=== PATIENT | male | born 1965 | race American Indian/Alaskan Native ===

== ENCOUNTER 2017-01-26 04:48 | Emergency (ER) | payer MEDICARE ==
[2017-01-26 05:29] LABS: Basophils % (Auto) 0.9 % (0.0-1.8); Eosinophils % (Auto) 3.2 % (0.0-4.3); Hematocrit 34.3 % (35.5-45.6); Mean Corpuscular HGB Conc 32 % (32-34); Mean Corpuscular Hemoglobin 28 pg (28-32); Mean Corpuscular Volume 88 fl (84-94); Platelet Count 263 K/mm3 (140-440); Red Cell Distribution Width 18.8 % (13.2-15.2); White Blood Count 7.1 K/mm3 (4.5-11.0)
[2017-01-26 05:42] LABS: BUN/Creatinine Ratio 3.06; Calcium 9.9 mg/dL (8.4-10.2); Chloride 90.6 mmol/L (98-107); Potassium 5.2 mmol/L (3.6-5.0)
[2017-01-26] MEDS ORDERED: ZOFRAN ODT PO ONE (06:28)
--- NOTE | 2017-01-26 06:33 | Emergency Department Report ---
HPI - General Chief Complaint: Nausea/Vomiting/Diarrhea Time Seen by Provider: 01/26/17 06:20 - HPI HPI: Room 23 The patient is a 51-year-old male presenting with a chief complaint nausea vomiting and diarrhea. Patient states for the past 2 days he's had episodes of nausea vomiting and diarrhea. Patient states when he awakened today he had diffuse body aches in addition to frontal headache. Patient denies any history of sick contacts, fever or cough. Patient denies any other complaints. Patient last received dialysis yesterday Location: [see above] Duration: 2 days, see above Quality: Aches Severity: Moderate Modifying factors: [see above] Context: [see above] Mode of transportation: The patient drove himself to the emergency department and there are no visitors present ED Past Medical Hx - Past Medical History Previous Medical History?: Yes Hx Hypertension: Yes (10yrs) Hx Renal Disease: Yes (Mon, Wed, and Fri dailysis) - Surgical History Past Surgical History?: Yes Hx Cholecystectomy: Yes Additional Surgical History: av graft to left arm and right arm. - Family History Family history: no significant - Social History Smoking Status: Never Smoker Substance Use Type: None (denies illicit drug use) - Medications Home Medications: Home Medications Medication Instructions Recorded Confirmed Last Taken Type Cinacalcet HCl [Sensipar] 90 mg PO QDAY 09/06/13 01/26/17 09/06/13 08:00 History Sevelamer Carbonate [Renvela] 800 mg PO TID 09/06/13 01/26/17 09/06/13 13:10 History cloNIDine [Catapres] 0.2 mg PO Q12HR #60 tablet 09/09/13 01/26/17 Unknown Rx hydrALAZINE [Apresoline TAB] 25 mg PO Q8HR #90 tablet 09/09/13 01/26/17 Unknown Rx HYDROcodone/APAP 5-325 [[place] 1 - 2 each PO Q6HR PRN #14 tablet 01/26/17 Unknown Rx 5/325] Promethazine [Phenergan TAB] 25 mg PO Q6HR PRN #20 tab 01/26/17 Unknown Rx Promethazine [Phenergan] 25 mg [place] Q6HR PRN #5 supp.rect 01/26/17 Unknown Rx ED Review of Systems ROS: Stated complaint: EMESIS/DIARRHEA Other details as noted in HPI Comment: All other systems reviewed and negative Constitutional: denies: chills, fever Eyes: denies: eye pain, eye discharge, vision change ENT: denies: ear pain, throat pain Respiratory: denies: cough, shortness of breath, wheezing Cardiovascular: denies: chest pain, palpitations Endocrine: no symptoms reported Gastrointestinal: abdominal pain, nausea, vomiting, diarrhea Genitourinary: denies: urgency, dysuria Musculoskeletal: denies: back pain, joint swelling, arthralgia Skin: denies: rash, lesions Neurological: denies: headache, weakness, paresthesias Psychiatric: denies: anxiety, depression Hematological/Lymphatic: denies: easy bleeding, easy bruising Physical Exam - Physical Exam Vital Signs: Vital Signs 01/26/17 01/26/17 01/26/17 04:54 05:11 05:21 Temperature 98.2 F Pulse Rate 110 H 86 79 Respiratory 18 13 15 Rate Blood Pressure 219/124 161/74 O2 Sat by Pulse 100 99 97 Oximetry 01/26/17 05:34 Temperature Pulse Rate Respiratory 16 Rate Blood Pressure O2 Sat by Pulse 97 Oximetry Physical Exam: GENERAL: The patient is well-developed well-nourished male lying on stretcher sleeping not appearing to be in acute distress. [] HEENT: Normocephalic. Atraumatic. Extraocular motions are intact. Patient has moist mucous membranes. NECK: Supple. No meningitic signs are noted. Trachea midline CHEST/LUNGS: Clear to auscultation. There is no respiratory distress noted. HEART/CARDIOVASCULAR: Regular. There is no tachycardia. There is no gallop rub or murmur. ABDOMEN: Abdomen is soft, nontender. Patient has normal bowel sounds. There is no abdominal distention. SKIN: There is no rash. There is no edema. There is no diaphoresis. NEURO: The patient is awake, alert, and oriented. The patient is cooperative. The patient has no focal neurologic deficits. The patient has normal speech. Cranial nerves II through XII grossly intact, no drift MUSCULOSKELETAL: There is no evidence of acute injury. ED Course Vital Signs 01/26/17 01/26/17 01/26/17 04:54 05:11 05:21 Temperature 98.2 F Pulse Rate 110 H 86 79 Respiratory 18 13 15 Rate Blood Pressure 219/124 161/74 O2 Sat by Pulse 100 99 97 Oximetry 01/26/17 05:34 Temperature Pulse Rate Respiratory 16 Rate Blood Pressure O2 Sat by Pulse 97 Oximetry ED Medical Decision Making - Lab Data Result diagrams: 01/26/17 05:05 01/26/17 05:05 Laboratory Tests 01/26/17 01/26/17 05:05 05:05 WBC 7.1 RBC 3.90 Hgb 11.0 L Hct 34.3 L MCV 88 MCH 28 MCHC 32 RDW 18.8 H Plt Count 263 Lymph % (Auto) 30.7 [place] % (Auto) 7.8 H Eos % (Auto) 3.2 Baso % (Auto) 0.9 Lymph # 2.2 [place] # 0.6 Eos # 0.2 Baso # 0.1 Seg Neutrophils % 57.4 Seg Neutrophils # 4.1 Sodium 138 Potassium 5.2 H Chloride 90.6 L Carbon Dioxide 27 Anion Gap 26 BUN 30 H Creatinine 9.8 H Estimated GFR 7 BUN/Creatinine Ratio 3.06 Glucose 99 Calcium 9.9 Laboratory Tests 01/26/17 01/26/17 01/26/17 05:05 05:05 05:05 WBC 7.1 RBC 3.90 Hgb 11.0 L Hct 34.3 L MCV 88 MCH 28 MCHC 32 RDW 18.8 H Plt Count 263 Lymph % (Auto) 30.7 [place] % (Auto) 7.8 H Eos % (Auto) 3.2 Baso % (Auto) 0.9 Lymph # 2.2 [place] # 0.6 Eos # 0.2 Baso # 0.1 Seg Neutrophils % 57.4 Seg Neutrophils # 4.1 Sodium 138 Potassium 5.2 H Chloride 90.6 L Carbon Dioxide 27 Anion Gap 26 BUN 30 H Creatinine 9.8 H Estimated GFR 7 BUN/Creatinine Ratio 3.06 Glucose 99 Calcium 9.9 Total Bilirubin 0.30 Direct Bilirubin < 0.2 Indirect Bilirubin 0.1 AST 23 ALT 6 L Alkaline Phosphatase 162 H Total Protein 7.9 Albumin 4.1 Albumin/Globulin Ratio 1.1 Lipase 119 H - Radiology Data Radiology results: report reviewed (CT head, CT abdomen and pelvis), image reviewed (CT head, CT abdomen and pelvis) CT head (read by radiologist)-there is no acute intracranial abnormality. There is no evidence of hemorrhage CT abdomen and pelvis (read by radiologist)-no acute inflammatory processes appreciated. Cholelithiasis. Renal atrophy and renal osteodystrophy changes. Advanced degenerative disc disease at L5-S1. The liver, pancreas, spleen and adrenal glands are unremarkable. - Differential Diagnosis gastroenteritis, pancreatitis, hepatitis, ICH, headache, hypertension Critical care attestation.: If time is entered above; I have spent that time in minutes in the direct care of this critically ill patient, excluding procedure time. ED Disposition Clinical Impression: Nausea vomiting and diarrhea, ESRD on hemodialysis, Hypertension, Headache Disposition: TO HOME OR SELFCARE Is pt being admited?: No Does the pt Need Aspirin: No Condition: Stable Instructions: Hypertension (ED), Acute Nausea and Vomiting (ED) Additional Instructions: Return to the emergency department immediately should you develop worsening symptoms, fever, inability to tolerate food or liquid or any other concerns. Prescriptions: HYDROcodone/APAP 5-325 [[place] 5/325] 1 - 2 each PO Q6HR PRN #14 tablet PRN Reason: Pain Promethazine [Phenergan TAB] 25 mg PO Q6HR PRN #20 tab PRN Reason: Nausea Promethazine [Phenergan] 25 mg [place] Q6HR PRN #5 supp.rect PRN Reason: Vomiting Referrals: RADHA IVY MD [Staff Physician] - 3-5 Days (Dr. Ivy is a primary physician. Please follow up with him for further evaluation) Time of Disposition: 09:08
[2017-01-26 06:51] LABS: Alanine Aminotransferase 6 units/L (7-56); Albumin 4.1 g/dL (3.9-5); Albumin/Globulin Ratio 1.1 %; Alkaline Phosphatase 162 units/L (35-129); Lipase 119 units/L (13-60); Total Protein 7.9 g/dL (6.3-8.2)
[2017-01-26 06:52] LABS: Bilirubin,Direct < 0.2 mg/dL (0-0.2); Bilirubin,Indirect 0.1 mg/dL
--- NOTE | 2017-01-26 07:29 | Cat Scan Report ---
FINAL REPORT PROCEDURE: CT HEAD/BRAIN WO CON TECHNIQUE: Computerized tomography of the head was performed without contrast material. HISTORY: headache with hypertension COMPARISON: No prior studies are available for comparison. FINDINGS: Skull and scalp: Normal. Paranasal sinuses: Normal. Ventricles and subarachnoid spaces: There is no hydrocephalus or ventricular asymmetry.. Cerebrum: No evidence of hemorrhage, acute infarction or mass . Cerebellum and brainstem: No evidence of hemorrhage, acute infarction or mass. Vasculature: Normal. Comments: None. IMPRESSION: There is no acute intracranial abnormality. There is no evidence of hemorrhage.
--- NOTE | 2017-01-26 08:23 | Cat Scan Report ---
CT OF THE ABDOMEN AND PELVIS WITHOUT CONTRAST HISTORY: Vomiting, diarrhea, elevated lipase. TECHNIQUE: Helical CT without contrast. Sagittal and coronal reformatted images. FINDINGS: There is linear scarring in the left lower lobe, otherwise, the visualized lung bases are clear. Normal heart size. The liver, pancreas, spleen and adrenal glands are unremarkable. A few small calcified gallstones measure up to 5 mm. No biliary dilatation or inflammation is appreciated. There is marked bilateral renal atrophy. The bowel loops are within normal limits given no oral contrast was administered. The appendix is not confidently identified, correlate with surgical history. The bladder is empty. No pelvic mass, fluid collection or adenopathy. The bony structures are sclerotic consistent with renal osteodystrophy changes. There is moderate to severe endplate irregularity at L5-S1 level which is probably degenerative or chronic. An infectious process could be considered but is thought less likely. Please correlate with the patient. IMPRESSION: No acute inflammatory process is appreciated. Cholelithiasis. Renal atrophy and renal osteodystrophy changes. Advanced degenerative disc disease at L5-S1.
[2017-01-26] MEDS ORDERED: PROVENTIL IH ONE (09:02)
[2017-01-26 09:38] VITALS: BP 158/73
== END 2017-01-26 09:42 | disposition home or self-care (01) ==
LOC: ED 04:48
DX: R11.2 Nausea with vomiting, unspecified (principal); R19.7 Diarrhea, unspecified; I12.0 Hypertensive chronic kidney disease with stage 5 chronic kidney disease or end stage renal disease; N18.6 End stage renal disease; Z99.2 Dependence on renal dialysis; R51 Headache; Z90.49 Acquired absence of other specified parts of digestive tract
CPT/HCPCS: 36415; 70450; 74176; 80048; 80074; 83690; 85025; 94640; Q0162

== ENCOUNTER 2017-03-22 16:25 | Emergency (ER) | payer MEDICARE ==
--- NOTE | 2017-03-22 17:01 | Emergency Department Report ---
Stated Complaint: BECKETT Time Seen by Provider: 03/22/17 16:59 - HPI History of Present Illness: PT states he was at HD and he was told his K+ level was high and he had high blood pressure - ROS Review of Systems: pt states he feels "swimmy headed" - Exam Vital Signs: Vital Signs 03/22/17 16:54 Temperature 98.6 F Pulse Rate 78 Respiratory 16 Rate Blood Pressure 154/94 O2 Sat by Pulse 99 Oximetry Physical Exam: PT is alert and appropriate, no acute resp distress noted steady gait gcs 15 MSE screening note: Focused history and physical exam performed. Due to findings the following was ordered: ekg, labs ED Disposition for MSE Condition: Stable
[2017-03-22 17:45] LABS: Basophils % (Auto) 0.8 % (0.0-1.8); Hemoglobin 11.2 gm/dl (11.8-15.2); Mean Corpuscular HGB Conc 33 % (32-34); Mean Corpuscular Hemoglobin 28 pg (28-32); Mean Corpuscular Volume 86 fl (84-94); Platelet Count 267 K/mm3 (140-440); Red Blood Count 3.95 M/mm3 (3.65-5.03); White Blood Count 5.8 K/mm3 (4.5-11.0)
[2017-03-22 17:48] LABS: BUN/Creatinine Ratio 3.29; Calcium 10.2 mg/dL (8.4-10.2); Chloride 91.3 mmol/L (98-107); Potassium 4.7 mmol/L (3.6-5.0)
[2017-03-22 17:52] LABS: Red Cell Distribution Width 21.4 % (13.2-15.2)
[2017-03-22] MEDS ORDERED: TYLENOL PO ONE (22:32)
[2017-03-22] MEDS ORDERED: TYLENOL ONE (22:33)
[2017-03-23] MEDS ORDERED: PERCOCET 5/325 PO ONE (00:45)
--- NOTE | 2017-03-23 00:49 | Emergency Department Report ---
HPI - General Chief Complaint: Recheck/Abnormal Lab/Rx Time Seen by Provider: 03/22/17 16:59 - HPI HPI: This is a 51 year-old male presents to the emergency department , dropped off by a friend, with a complaint of elevated blood pressure. The patient had his dialysis today and was being seen by the faculty neuropsychologist afterwards and was found to have a systolic blood pressure of about 200 and was told to go to the emergency department immediately. He has a generalized headache and some dizziness. He denies any vision change, slurred speech, chest pain, shortness of breath, nausea, vomiting or abdominal pain. He did not take anything and was not given anything for his symptoms prior to presentation. He has a history of hypertension for which he takes Klonopin and another blood pressure medication and says he did take it this morning. He also has a history of end-stage renal disease on dialysis on Wednesday/Wednesday/ Wednesday. He has a AV graft to the right upper extremity that he is using for dialysis and another one in the left upper extremity that is supposed to come out in the next few days. No recent travel or sick contacts at home. ED Past Medical Hx - Past Medical History Hx Hypertension: Yes (10yrs) Hx Congestive Heart Failure: No Hx Diabetes: No Hx Renal Disease: Yes (Wed, Wed, and Wed dailysis) Hx Sickle Cell Disease: No Hx Asthma: No Hx COPD: No - Surgical History Hx Open Heart Surgery: No Hx Cholecystectomy: Yes Hx Appendectomy: No Hx Breast Surgery: No Additional Surgical History: av graft to left arm and right arm. - Social History Smoking Status: Never Smoker Substance Use Type: None - Medications Home Medications: Home Medications Medication Instructions Recorded Confirmed Last Taken Type Cinacalcet HCl [Sensipar] 90 mg PO QDAY 09/06/13 01/26/17 09/06/13 08:00 History Sevelamer Carbonate [Renvela] 800 mg PO TID 09/06/13 01/26/17 09/06/13 13:10 History cloNIDine [Catapres] 0.2 mg PO Q12HR #60 tablet 09/09/13 01/26/17 Unknown Rx hydrALAZINE [Apresoline TAB] 25 mg PO Q8HR #90 tablet 09/09/13 01/26/17 Unknown Rx HYDROcodone/APAP 5-325 [[place] 1 - 2 each PO Q6HR PRN #14 tablet 01/26/17 Unknown Rx 5/325] Promethazine [Phenergan TAB] 25 mg PO Q6HR PRN #20 tab 01/26/17 Unknown Rx Promethazine [Phenergan] 25 mg [place] Q6HR PRN #5 supp.rect 01/26/17 Unknown Rx ED Review of Systems ROS: Stated complaint: BECKETT Other details as noted in HPI Comment: All other systems reviewed and negative Constitutional: denies: chills, fever Eyes: denies: eye pain, eye discharge, vision change ENT: denies: ear pain, throat pain Respiratory: denies: cough, shortness of breath, wheezing Cardiovascular: denies: chest pain, palpitations Gastrointestinal: denies: abdominal pain, nausea, diarrhea Genitourinary: denies: urgency, dysuria Musculoskeletal: denies: back pain, joint swelling, arthralgia Skin: denies: rash, lesions Neurological: headache, other (dizziness). denies: weakness, numbness, paresthesias Physical Exam - Physical Exam Vital Signs: Vital Signs 03/22/17 03/22/17 03/23/17 16:54 22:27 00:41 Temperature 98.6 F 98.3 F 97.9 F Pulse Rate 78 60 56 L Respiratory 16 18 15 Rate Blood Pressure 154/94 170/91 Blood Pressure 162/85 [Left] O2 Sat by Pulse 99 100 98 Oximetry Physical Exam: GENERAL: The patient is well-developed well-nourished. HENT: Normocephalic. Atraumatic. Patient has moist mucous membranes. EYES: Extraocular motions are intact. Pupils equal reactive to light bilaterally. No nystagmus. NECK: Supple. Trachea is midline. CHEST/LUNGS: Clear to auscultation. There is no respiratory distress noted. HEART/CARDIOVASCULAR: Regular. There is no tachycardia. There is no gallop rub or murmur. ABDOMEN: Abdomen is soft, nontender. Patient has normal bowel sounds. There is no abdominal distention. SKIN: Skin is warm and dry. NEURO: The patient is awake, alert, and oriented. The patient is cooperative. The patient has no focal neurologic deficits. The patient has normal speech. Cranial nerves II through XII grossly intact. MUSCULOSKELETAL: There is no tenderness or deformity. There is no limitation range of motion. There is no evidence of acute injury. There is a patent right upper extremity AV graft with a palpable thrill and audible home. There is another large AV graft in the left upper extremity. ED Course Vital Signs 03/22/17 03/22/17 03/23/17 16:54 22:27 00:41 Temperature 98.6 F 98.3 F 97.9 F Pulse Rate 78 60 56 L Respiratory 16 18 15 Rate Blood Pressure 154/94 170/91 Blood Pressure 162/85 [Left] O2 Sat by Pulse 99 100 98 Oximetry ED Medical Decision Making - Lab Data Result diagrams: 03/22/17 17:13 03/22/17 17:13 - EKG Data -: EKG Interpreted by Me EKG shows normal: sinus rhythm, axis, intervals, QRS complexes (Q waves to the septal leads), ST-T waves Rate: normal - EKG Data When compared to previous EKG there are: no significant change Interpretation: unchanged when compared t (09/06/13) - Radiology Data Radiology results: report reviewed CT of the head does not show any acute intracranial process including no ischemia, shift, mass, bleeding or skull fracture. - Medical Decision Making 51-year-old male was sent in from dialysis clinic after they checked his postdialysis blood work and found a potassium of about 7 and he had elevated blood pressure with a systolic of about 200. The patient's potassium level here is 4.7. The labs are mostly unremarkable. He did have some elevated blood pressure here but it never went above about systolic 175. He does complain of a headache and some nonspecific dizziness so a CT of the head was done but it resulted as no acute process. He was given a single pain pill and upon reevaluation he says he is feeling much better. There is no focal, motor or sensory deficits and his cranial nerves are intact. Blood pressure is greatly improved. He will be discharged home to follow-up with his faculty neuropsychologist , who acts as his primary care doctor as well, and continue with his normal dialysis regimen. - Differential Diagnosis tension headache, subarachnoid, hyperkalemia, CHF Critical Care Time: No Critical care attestation.: If time is entered above; I have spent that time in minutes in the direct care of this critically ill patient, excluding procedure time. ED Disposition Clinical Impression: ESRD on dialysis Hypertension Qualifiers: Hypertension type: renovascular hypertension Qualified Code(s): I15.0 - Renovascular hypertension Headache Qualifiers: Headache type: unspecified Headache chronicity pattern: unspecified pattern Intractability: not intractable Qualified Code(s): R51 - Headache Disposition: DC-01 TO HOME OR SELFCARE Is pt being admited?: No Condition: Stable Instructions: Hypertension (ED), Chronic Kidney Disease (ED), Acute Headache ( ED) Additional Instructions: Please follow-up with your regular doctor/faculty neuropsychologist in the next few days. Return to the emergency Department with any worsening of her symptoms or any acute distress. Referrals: SULY ROBERTS MD [Staff Physician] - [facility] Time of Disposition: 01:47
--- NOTE | 2017-03-23 01:31 | Cat Scan Report ---
FINAL REPORT EXAM: CT HEAD/BRAIN WO CON HISTORY: Headache COMPARISON: CT of the head from January 2017. TECHNIQUE: Axial images obtained skull base through vertex. FINDINGS: No acute intracranial hemorrhage, midline shift or pathologic extra axial fluid collection. Ventricles and cisterns are normal in size and configuration for the patient's age. Mild chronic small vessel ischemic disease. Joseph-white differentiation preserved. Calvarium grossly intact. Visualized orbits are grossly unremarkable. Moderate mucosal thickening of the posterior right ethmoid air cell. Mastoid air cells are clear. IMPRESSION: No grossly acute intracranial abnormality. Mild chronic small vessel ischemic disease.
[2017-03-23 03:21] VITALS: BP 149/78
== END 2017-03-23 03:21 | disposition home or self-care (01) ==
LOC: ED 16:25
DX: I12.0 Hypertensive chronic kidney disease with stage 5 chronic kidney disease or end stage renal disease (principal); N18.6 End stage renal disease; I15.0 Renovascular hypertension; R51 Headache; Z99.2 Dependence on renal dialysis
CPT/HCPCS: 36415; 70450; 80048; 85025; 93005; 93010

== ENCOUNTER 2019-06-15 14:18 | Emergency (ER) | payer MEDICARE ==
--- NOTE | 2019-06-15 15:16 | XRay Report ---
LEFT ELBOW 2 VIEWS INDICATION: pain/swelling after fall. COMPARISON: No relevant prior imaging study available. FINDINGS: There is extensive soft tissue swelling posteriorly. Calcific densities are seen in the posterior dis jose arm approximately 4 cm proximal to the tip of the olecranon. No acute, displaced fracture, dislocation, or joint effusion is seen. IMPRESSION: 1. Findings described above are concerning for high-grade distal triceps tear/rupture with proximal m id retraction. Correlate clinically. MRI would be useful to better characterize this. Signer Name: Hima Kamara MD Signed: 06/15/2019 3:11 PM Workstation Name: [id number]
[2019-06-15] MEDS ORDERED: ACETAMINOPHEN 500 MG TAB PO ONE (15:59)
[2019-06-15] MEDS ORDERED: cloNIDine 0.1 MG TAB PO ONE ×2 (15:59→17:41)
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
[2019-06-15] MEDS ORDERED: ONDANSETRON 4 MG ODT TAB ONE (16:48)
[2019-06-15] MEDS ORDERED: ONDANSETRON 4 MG ODT TAB PO ONE (16:49)
[2019-06-15 17:50] VITALS: BP 208/87
== END 2019-06-15 18:36 | disposition home or self-care (01) ==
LOC: ED 14:18
DX: S53.402A Unspecified sprain of left elbow, initial encounter (principal); S46.312A Strain of muscle, fascia and tendon of triceps, left arm, initial encounter; I16.0 Hypertensive urgency; E87.70 Fluid overload, unspecified; I12.0 Hypertensive chronic kidney disease with stage 5 chronic kidney disease or end stage renal disease; N18.6 End stage renal disease; Z99.2 Dependence on renal dialysis; Z90.49 Acquired absence of other specified parts of digestive tract; Z98.890 Other specified postprocedural states; W01.0XXA Fall on same level from slipping, tripping and stumbling without subsequent striking against object, initial encounter; Y93.89 Activity, other specified; Y92.89 Other specified places as the place of occurrence of the external cause; Y99.8 Other external cause status
CPT/HCPCS: Q0162

== ENCOUNTER 2020-05-22 20:34 | Observation (INO) | payer MEDICARE, OTHER ==
--- NOTE | 2020-05-22 20:45 | Event Note ---
ED Screening Note Date of service: 05/22/20 Time: 20:44 ED Screening Note: Patient complains of sudden onset of chest tightness after hemodialysis today States some mild shortness of breath This initial assessment/diagnostic orders/clinical plan/treatment(s) is/are subject to change based on patients health status, clinical progression and re- assessment by fellow clinical providers in the ED. Further treatment and workup at subsequent clinical providers discretion. Patient/guardian urged not to elope from the ED as their condition may be serious if not clinically assessed and managed. Initial orders include: Labs EKG Chest xr
[2020-05-22 21:23] LABS: Basophils % (Auto) 0.8 % (0.0-1.8); Eosinophils # (Auto) 0.2 K/mm3 (0.0-0.4); Eosinophils % (Auto) 3.6 % (0.0-4.3); Hematocrit 31.5 % (35.5-45.6); Hemoglobin 10.4 gm/dl (11.8-15.2); Lymphocytes # (Auto) 1.7 K/mm3 (1.2-5.4); Lymphocytes % (Auto) 31.1 % (13.4-35.0); Mean Corpuscular HGB Conc 33 % (32-34); Mean Corpuscular Volume 85 fl (84-94); Monocytes # (Auto) 0.4 K/mm3 (0.0-0.8); Monocytes % (Auto) 6.7 % (0.0-7.3); Platelet Count 176 K/mm3 (140-440); Red Cell Distribution Width 19.1 % (13.2-15.2)
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
[2020-05-22 21:38] LABS: Albumin 4.5 g/dL (3.9-5)
[2020-05-22 21:55] LABS: Chol/HDL Ratio 1.9 %
[2020-05-22] MEDS ORDERED: MORPHINE 2 MG/1 ML INJ IV ONE (22:33)
[2020-05-22] MEDS ORDERED: ASPIRIN 81 MG TAB CHEW ONE (22:34)
--- NOTE | 2020-05-22 22:36 | Emergency Department Report ---
ED Chest Pain HPI - General Chief Complaint: Chest Pain Stated Complaint: CHEST PAIN PUI?: No Time Seen by Provider: 05/22/20 22:25 Source: patient Mode of arrival: Ambulatory Limitations: No Limitations - History of Present Illness Initial Comments: She is a 54-year-old male that presents emergency room with complaints of subst ernal chest pain. Patient states his chest pain started at 8 PM. Patient states he is also having shortness of breath. Patient states his chest pain and shortness of breath are better with rest and worse with exertion. Patient denies fever and chills. Patient denies diaphoresis. Patient denies nausea and vomiting. Patient states he has dialysis on Wednesday. Patient states he had normal dialysis today. Patient states his chest pain is a 10 out of 10. Patient states his chest pain is nonradiating. Patient denies recent travel. Patient denies recent international travel. Patient denies exposure to the novel coronavirus. Patient denies sick contacts. Patient denies fever and chills. Patient denies cough. Patient denies diarrhea. Patient denies coming in contact with anybody with symptoms of the novel coronavirus. MD Complaint: chest pain -: Sudden Onset: during rest Pain Location: substernal Pain Radiation: none Severity: severe Severity scale (0 -10): 10 Quality: sharp Consistency: constant Improves With: rest Worsens With: exertion re: dyspnea. denies: nausea, vomting, diaphoresis, sense of impending doom Other Symptoms: denies: cough, fever, syncope, rash, acid taste in mouth, leg swelling, palpitations Treatments Prior to Arrival: none Aspirin use within the Past 7 Days: (1) Yes - Related Data On Oral Contraceptives: No Home Medications Medication Instructions Recorded Confirmed Last Taken Cinacalcet HCl [Sensipar] 90 mg PO QDAY 09/06/13 01/26/17 09/06/13 08:00 Sevelamer Carbonate [Renvela] 800 mg PO TID 09/06/13 01/26/17 09/06/13 13:10 NIFEdipine [Nifedipine ER] 1 tab PO BID 05/23/20 05/23/20 05/22/20 08:00 Previous Rx's Medication Instructions Recorded Last Taken Type cloNIDine [Catapres] 0.2 mg PO Q12HR #60 tablet 09/09/13 Unknown Rx Acetaminophen [Acetaminophen TAB] 500 mg PO Q6HR PRN #24 tablet 06/15/19 Unknown Rx Allergies Allergy/AdvReac Type Severity Reaction Status Date / Time No Known Allergies Allergy Verified 06/15/19 14:18 Heart Score - HEART Score History: Moderately suspicious EKG: Non-specific Age: 45-65 Risk factors: 1-2 risk factors Troponin: < normal limit HEART Score: 4 ED Review of Systems ROS: Stated complaint: CHEST PAIN Other details as noted in HPI Constitutional: denies: chills, fever Eyes: denies: eye pain, eye discharge, vision change ENT: denies: ear pain, throat pain Respiratory: shortness of breath. denies: cough, wheezing Cardiovascular: chest pain. denies: palpitations Endocrine: no symptoms reported Gastrointestinal: denies: abdominal pain, nausea, diarrhea Genitourinary: denies: urgency, dysuria Musculoskeletal: denies: back pain, joint swelling, arthralgia Skin: denies: rash, lesions Neurological: denies: headache, weakness, paresthesias Psychiatric: denies: anxiety, depression Hematological/Lymphatic: denies: easy bleeding, easy bruising ED Past Medical Hx - Past Medical History Previous Medical History?: Yes Hx Hypertension: Yes (10yrs) Hx Congestive Heart Failure: No Hx Diabetes: No Hx Renal Disease: Yes (Mon, Wed, and Fri dailysis) Hx Sickle Cell Disease: No Hx Asthma: No Hx COPD: No - Surgical History Past Surgical History?: Yes Hx Open Heart Surgery: No Hx Cholecystectomy: Yes Hx Appendectomy: No Hx Breast Surgery: No Additional Surgical History: av graft to left arm and right arm. - Family History Family history: no significant - Social History Smoking Status: Never Smoker Substance Use Type: None - Medications Home Medications: Home Medications Medication Instructions Recorded Confirmed Last Taken Type Cinacalcet HCl [Sensipar] 90 mg PO QDAY 09/06/13 01/26/17 09/06/13 08:00 History Sevelamer Carbonate [Renvela] 800 mg PO TID 09/06/13 01/26/17 09/06/13 13:10 History cloNIDine [Catapres] 0.2 mg PO Q12HR #60 tablet 09/09/13 01/26/17 Unknown Rx Acetaminophen [Acetaminophen TAB] 500 mg PO Q6HR PRN #24 tablet 06/15/19 Unk nown Rx NIFEdipine [Nifedipine ER] 1 tab PO BID 05/23/20 05/23/20 05/22/20 08:00 History ED Physical Exam - General Limitations: No Limitations General appearance: alert, in no apparent distress - Head Head exam: Present: atraumatic, normocephalic - Eye Eye exam: Present: normal appearance - ENT ENT exam: Present: mucous membranes moist - Neck Neck exam: Present: normal inspection - Respiratory Respiratory exam: Present: normal lung sounds bilaterally. Absent: respiratory distress, wheezes, rales - Cardiovascular Cardiovascular Exam: Present: regular rate, normal rhythm. Absent: systolic murmur, diastolic murmur, rubs, gallop - GI/Abdominal GI/Abdominal exam: Present: soft, normal bowel sounds - Rectal Rectal exam: Present: deferred - Extremities Exam Extremities exam: Present: normal inspection - Back Exam Back exam: Present: normal inspection - Neurological Exam Neurological exam: Present: alert, oriented X3 - Psychiatric Psychiatric exam: Present: normal affect, normal mood - Skin Skin exam: Present: warm, dry, intact, normal color. Absent: rash ED Course Vital Signs 05/22/20 05/22/20 05/22/20 20:42 22:53 23:05 Temperature 97.4 F L Pulse Rate 58 L 70 Respiratory 18 16 16 Rate Blood Pressure 142/88 O2 Sat by Pulse 100 99 Oximetry 05/22/20 05/23/20 05/23/20 23:30 00:00 00:30 Temperature Pulse Rate 60 72 57 L Respiratory 16 13 15 Rate Blood Pressure 223/93 204/87 204/83 O2 Sat by Pulse 99 96 99 Oximetry 05/23/20 05/23/20 05/23/20 01:00 01:30 02:00 Temperature Pulse Rate 61 55 L 57 L Respiratory 15 19 18 Rate Blood Pressure 207/86 214/98 219/92 O2 Sat by Pulse 99 100 99 Oximetry 05/23/20 05/23/20 02:30 03:00 Temperature Pulse Rate 58 L 55 L Respiratory 17 16 Rate Blood Pressure 219/84 211/64 O2 Sat by Pulse 99 98 Oximetry - Reevaluation(s) Reevaluation #1: I discussed all results with patient. I discussed plan of care with patient. Patient agrees with plan of care and admission. Patient to be admitted to the hospitalist service. 05/23/20 00:13 - Consultations Consultation #1: Hospitalist consulted for admission. Hospitalist to admit patient. Bridge orders placed. 05/23/20 00:13 ADAMS score - Adams Score Age > 65: (0) No Aspirin use within the Past 7 Days: (1) Yes 3 or more CAD Risk Factors: (0) No 2 or more Angina events in past 24 hrs: (1) Yes Known CAD with more than 50% Stenosis: (0) No Elevated Cardiac Markers: (0) No ST Deviation Greater than 0.5mm: (0) No ADAMS Score: 2 ED Medical Decision Making - Lab Data Result diagrams: 05/23/20 03:10 05/23/20 03:10 - EKG Data -: EKG Interpreted by [place] EKG shows normal: sinus rhythm, axis, intervals, QRS complexes, ST-T waves Rate: tachycardia - EKG Data Interpretation: LVH - Radiology Data Radiology results: report reviewed CHEST 2 VIEWS INDICATION / CLINICAL INFORMATION: MAIN. Chest pain COMPARISON: 09/06/2013 FINDINGS: SUPPORT DEVICES: None. HEART / MEDIASTINUM: Stable. LUNGS / PLEURA: Persistent coarsened interstitial lung markings are noted throughout bilateral lung salvador. No confluent infiltrates or pleural effusions. No pneumothorax. ADDITIONAL FINDINGS: Retained metallic pellets are noted over the right hemithorax. IMPRESSION: 1. No acute findings. 2. Previously noted coarsened interstitial lung markings are relatively unchanged since 2013. - Medical Decision Making Patient is a 54-year-old male who presents emergency room with complaints of chest pain. Patient's planing of substernal chest pain. Patient's initial troponin was elevated. Patient has a history of end-stage renal disease on dialysis. Patient EKG is negative for a STEMI. Patient's chest x-ray is negative for acute findings. Patient's labs are unremarkable except for end- stage renal disease. Patient's heart score is elevated and at 4. Patient's ADAMS score documented. Patient will require inpatient rule out for ACS. Patient admitted to the hospitalist service for further evaluation and treatment and rule out ACS. - Differential Diagnosis Chest pain, ACS, hyperkalemia, electrolyte imbalance. Critical Care Time: Yes Critical care time in (mins) excluding proc time.: 35 Critical care attestation.: If time is entered above; I have spent that time in minutes in the direct care of this critically ill patient, excluding procedure time. Critical Care Time: 35 minutes ED Disposition Clinical Impression: ESRD (end stage renal disease) on dialysis, Elevated troponin, Essential hypertension Chest pain Qualifiers: Chest pain type: unspecified Qualified Code(s): R07.9 - Chest pain, unspecified Disposition: 09 OP ADMIT IP TO THIS HOSP Is pt being admited?: Yes Does the pt Need Aspirin: No Condition: Critical Time of Disposition: 00:15
[2020-05-23] MEDS ORDERED: ONDANSETRON 4 MG/2 ML INJ IV PRN (00:49)
[2020-05-23] MEDS ORDERED: MAGNESIUM HYDROXIDE (MOM) ORAL LIQD UDC PO PRN (00:49)
[2020-05-23] MEDS ORDERED: NITROGLYCERIN 0.4 MG TAB SUBL SL PRN (00:49)
[2020-05-23] MEDS ORDERED: ACETAMINOPHEN 325 MG TAB PO PRN ×2 (00:49)
--- NOTE | 2020-05-23 01:27 | History and Physical Report ---
History of Present Illness Date of examination: 05/23/20 Date of admission: 05/23/20 00:16 Chief complaint: Chest Pain History of present illness: 54-year-old male with known history of hypertension, end-stage renal disease on dialysis presenting to the emergency room today complaining of chest pain. Chest pain was said to have started earlier this evening at about 8 PM. Chest pain was substernal and having associated shortness of breath. Pain is worse on exertion and improves upon resting. On a scale of 10 pain was a 10/10 in severity and was nonradiating. Patient denies any fever or chills, no nausea vomiting, no headache or dizziness, no abdominal pain, no hematuria or dysuria. Patient gets dialysis on Mondays, Wednesdays and Fridays and has been compliant with his dialysis. Work-up in the emergency room today has been unremarkable except for the the elevated troponin of 0.124 Past History Past Medical History: dialysis, ESRD, hypertension Past Surgical History: Other (A-V fistula placement in right arm) Social history: no significant social history Family history: no significant family history Medications and Allergies Allergies Allergy/AdvReac Type Severity Reaction Status Date / Time No Known Allergies Allergy Verified 06/15/19 14:18 Home Medications Medication Instructions Recorded Confirmed Last Taken Type Cinacalcet HCl [Sensipar] 90 mg PO QDAY 09/06/13 01/26/17 09/06/13 08:00 History Sevelamer Carbonate [Renvela] 800 mg PO TID 09/06/13 01/26/17 09/06/13 13:10 History cloNIDine [Catapres] 0.2 mg PO Q12HR #60 tablet 09/09/13 01/26/17 Unknown Rx Acetaminophen [Acetaminophen TAB] 500 mg PO Q6HR PRN #24 tablet 06/15/19 Unknown Rx NIFEdipine [Nifedipine ER] 1 tab PO BID 05/23/20 05/23/20 05/22/20 08:00 History Active Meds: Active Medications Acetaminophen (Tylenol) 650 mg PO Q4H PRN PRN Reason: Pain MILD(1-3)/Fever >100.5/BECKETT Acetaminophen (Tylenol) 650 mg PO Q6H PRN PRN Reason: Pain, Mild (1-3) Aspirin (Aspirin) 325 mg PO QDAY TRENA Aspirin (Ecotrin) 325 mg PO QDAY TRENA Heparin Sodium (Porcine) (Heparin) 5,000 unit SUB-Q Q8HR [facility] Magnesium Hydroxide (Milk Of Magnesia) 30 ml PO Q4H PRN PRN Reason: Constipation Nitroglycerin (Nitrostat) 0.4 mg SL Q5M PRN PRN Reason: Chest Pain Ondansetron HCl (Zofran) 4 mg IV Q8H PRN PRN Reason: Nausea And Vomiting Sodium Chloride (Sodium Chloride Flush Syringe 10 Ml) 10 ml IV BID TRENA Sodium Chloride (Sodium Chloride Flush Syringe 10 Ml) 10 ml IV PRN PRN PRN Reason: LINE FLUSH Sodium Chloride (Sodium Chloride Flush Syringe 10 Ml) 10 ml IV PRN PRN PRN Reason: LINE FLUSH Review of Systems Constitutional: no fever, no chills Ears, nose, mouth and throat: no nasal congestion, no sore throat Cardiovascular: chest pain, no palpitations Respiratory: no cough, no shortness of breath Gastrointestinal: no abdominal pain, no nausea, no vomiting, no diarrhea Genitourinary Male: no dysuria, no hematuria, no nocturia Musculoskeletal: no neck pain, no low back pain Integumentary: no rash, no pruritis Neurological: no headaches, no confusion Psychiatric: no anxiety, no depression Exam - Constitutional Vitals: Temp Pulse Resp BP Pulse Ox 97.4 F L 70 16 142/88 99 05/22/20 20:42 05/22/20 22:53 05/22/20 22:53 05/22/20 20:42 05/22/20 22:53 General appearance: Present: no acute distress, well-nourished - EENT Eyes: Present: PERRL, EOM intact. Absent: scleral icterus ENT: hearing intact, clear oral mucosa, dentition normal - Neck Neck: Present: supple, normal ROM - Respiratory Respiratory effort: normal Respiratory: bilateral: CTA - Cardiovascular Rhythm: regular Heart Sounds: Present: S1 & S2. Absent: gallop, systolic murmur, diastolic murmur, rub - Extremities Extremities: no ischemia, pulses intact, pulses symmetrical, No edema, Full ROM Extremity abnormal: edema (Trace joshua. ankle edema) Peripheral Pulses: within normal limits - Abdominal General gastrointestinal: Present: soft, non-tender, non-distended, normal bowel sounds. Absent: mass - Integumentary Integumentary: Present: clear, warm, dry. Absent: rash - Musculoskeletal Musculoskeletal: strength equal bilaterally - Psychiatric Psychiatric: appropriate mood/affect, intact judgment & insight, memory intact, cooperative - Neurologic Neurologic: CNII-XII intact, no focal deficits, moves all extremities HEART Score - HEART Score EKG: Non-specific Age: 45-65 Risk factors: 1-2 risk factors Troponin: Troponin T 0.121 ng/mL (0.00-0.029) H* 05/22/20 23:55 Troponin: < normal limit Results - Labs CBC & Chem 7: 05/23/20 03:10 05/23/20 03:10 Labs: Abnormal lab results 05/22/20 05/22/20 05/22/20 Range/Units 20:57 20:57 23:55 Hgb 10.4 L (11.8-15.2) gm/dl Hct 31.5 L (35.5-45.6) % RDW 19.1 H (13.2-15.2) % Chloride 94.8 L (98-107) mmol/L Carbon Dioxide 31 H (22-30) mmol/L BUN 24 H (9-20) mg/dL Creatinine 8.2 H (0.8-1.3) mg/dL Glucose 113 H (75-100) mg/dL Alkaline Phosphatase 301 H (35-129) units/L Troponin T 0.124 H* 0.121 H* (0.00-0.029) ng/mL HDL Cholesterol 80 H (40-59) mg/dL Assessment and Plan - Patient Problems (1) Chest pain Current Visit: Yes Status: Acute Qualifiers: Chest pain type: unspecified Qualified Code(s): R07.9 - Chest pain, unspecified Plan to address problem: Patient admitted and placed on telemetry. Will place on aspirin, sublingual nitroglycerin and IV morphine as needed for chest pain. Initial troponin has been elevated however patient has known history of end- stage renal disease. There has been no EKG changes. (2) ESRD (end stage renal disease) on dialysis Current Visit: Yes Status: Acute (3) Elevated troponin Current Visit: Yes Status: Acute Plan to address problem: Possibly secondary to the chronic kidney disease. Will monitor troponin levels. (4) Essential hypertension Current Visit: Yes Status: Acute Plan to address problem: We will resume routine home medications and monitor vital signs closely. (5) DVT prophylaxis Current Visit: Yes Status: Acute Plan to address problem: Patient placed on anticoagulation with subcutaneous heparin. (6) Full code status Current Visit: Yes Status: Acute
[2020-05-23] MEDS ORDERED: cloNIDine 0.2 MG TAB ONE (02:37)
[2020-05-23] MEDS ORDERED: ACETAMINOPHEN 325 MG TAB ONE (02:37)
[2020-05-23 03:29] LABS: Basophils % (Auto) 0.5 % (0.0-1.8); Eosinophils # (Auto) 0.1 K/mm3 (0.0-0.4); Eosinophils % (Auto) 2.1 % (0.0-4.3); Hematocrit 28.6 % (35.5-45.6); Hemoglobin 9.4 gm/dl (11.8-15.2); Lymphocytes # (Auto) 1.4 K/mm3 (1.2-5.4); Lymphocytes % (Auto) 23.5 % (13.4-35.0); Mean Corpuscular HGB Conc 33 % (32-34); Mean Corpuscular Volume 83 fl (84-94); Monocytes # (Auto) 0.5 K/mm3 (0.0-0.8); Monocytes % (Auto) 8.6 % (0.0-7.3); Platelet Count 157 K/mm3 (140-440); Red Blood Count 3.43 M/mm3 (3.65-5.03); Red Cell Distribution Width 19.3 % (13.2-15.2)
[2020-05-23 03:52] LABS: Calcium 8.6 mg/dL (8.4-10.2)
[2020-05-23] MEDS ORDERED: SODIUM POLYSTYRENE 15 GM/60 ML ORAL LIQD PO ONE (03:56)
[2020-05-23] MEDS ORDERED: SODIUM POLYSTYRENE 15 GM/60 ML ORAL LIQD ONE (04:01)
[2020-05-23] MEDS ORDERED: HEPARIN 5,000 UNIT/1 ML VIAL SUB-Q SCH (06:00)
[2020-05-23] MEDS ORDERED: HEPARIN 5,000 UNIT/1 ML VIAL ONE (06:26)
[2020-05-23] MEDS ORDERED: cloNIDine 0.2 MG TAB PO ONE (06:46)
[2020-05-23] MEDS ORDERED: REGADENOSON 0.4 MG/5 ML INJ IV ONE ×2 (06:56→16:27)
[2020-05-23 09:28] VITALS: BP 188/98
[2020-05-23] MEDS ORDERED: ASPIRIN 325 MG TAB PO SCH (10:00)
[2020-05-23] MEDS ORDERED: amLODIPine 10 MG TAB PO SCH (10:00)
--- NOTE | 2020-05-23 14:57 | Discharge Summary ---
Providers - Providers Date of Admission: 05/23/20 00:16 Date of discharge: 05/23/20 Attending physician: EVER HAGER 05/23/20 Consult to Cardiac Rehabilitation [CONS] Routine Reason For Exam: Phase I 05/23/20 01:21 Consult to Physician [CONS] Routine Comment: Consulting Provider: ISMAEL PANG Physician Instructions: Reason For Exam: ESRD ON DIALYSIS Primary care physician: [facility] [employer] [facility] Hospitalization Condition: Critical Hospital course: 54-year-old male with known history of hypertension, end-stage renal disease on dialysis presenting to the emergency room today complaining of chest pain. Chest pain was said to have started earlier this evening at about 8 PM. Chest pain was substernal and having associated shortness of breath. Pain is worse on exertion and improves upon resting. On a scale of 10 pain was a 10/10 in severity and was nonradiating. Patient denies any fever or chills, no nausea vomiting, no headache or dizziness, no abdominal pain, no hematuria or dysuria. Patient gets dialysis on Mondays, Wednesdays and Fridays and has been compliant with his dialysis. Work-up in the emergency room today has been unremarkable except for the the elevated troponin of 0.124 Patient was admitted for cardiology evaluation. He was scheduled for a stress test He refused a stress test and left AMA. Disposition: [id number] LEFT AGAINST MED ADVICE - Discharge Diagnoses (1) Chest pain Status: Acute Qualifiers: Chest pain type: unspecified Qualified Code(s): R07.9 - Chest pain, unspecified (2) ESRD (end stage renal disease) on dialysis Status: Acute (3) Elevated troponin Status: Acute Core Measure Documentation - Palliative Care Palliative Care/ Comfort Measures: Not Applicable - Core Measures Any of the following diagnoses?: history only Exam - Physical Exam Narrative exam: Could not be examined as he left before rounds this AM - Constitutional Vitals: Temp Pulse Resp BP Pulse Ox 97.4 F L 60 18 188/98 96 05/22/20 20:42 05/23/20 08:25 05/23/20 08:25 05/23/20 08:25 05/23/20 08:25 Plan
[2020-05-24] MEDS ORDERED: ASPIRIN EC 325 MG TAB PO SCH (10:00)
== END 2020-05-23 09:25 | disposition left against medical advice (07) ==
LOC: ED 20:34 → 4A 05-23 00:16
PROVIDERS: ADMIT Internal Medicine Geriatric Medicine; ATTEND Internal Medicine
DX: R07.89 Other chest pain (principal); I12.0 Hypertensive chronic kidney disease with stage 5 chronic kidney disease or end stage renal disease; N18.6 End stage renal disease; R74.8 Abnormal levels of other serum enzymes; Z99.2 Dependence on renal dialysis; Z98.890 Other specified postprocedural states; Z79.82 Long term (current) use of aspirin; Z90.49 Acquired absence of other specified parts of digestive tract
CPT/HCPCS: 36415; 71046; 80048; 80053; 80061; 84484; 85025; 93005; 96372; 96374; 99291; G0378; J1644; J2270; J2785